=== PATIENT | male | born 1975 | race Caucasian/White ===

== ENCOUNTER → 2017-02-26 | Outpatient (CLI) | payer OTHER ==
--- NOTE | 2017-02-26 19:50 | MR ---
EXAMINATION TYPE: MR knee RT wo con DATE OF EXAM: 02/26/2017 COMPARISON: NONE HISTORY: Right knee pain TECHNIQUE: Multiplanar, multisequence imaging of the right knee is performed without IV contrast. FINDINGS: MEDIAL MENISCUS: Complex tear posterior horn medial meniscus LATERAL MENISCUS: Anterior and posterior horns are intact without tear. CRUCIATE LIGAMENTS: The anterior and posterior cruciate ligaments are intact and unremarkable. COLLATERAL LIGAMENTS: The medial collateral ligament and lateral collateral ligament complex are inta ct and unremarkable. EXTENSOR MECHANISM: Visualized quadriceps and patellar tendons are intact. EFFUSION: No significant suprapatellar joint effusion. POPLITEAL CYST: 1.5 x 1.4 x 4.1 cm area of fluid signal popliteal fossa. BONE MARROW SIGNAL: No focal abnormal marrow signal is appreciated. IMPRESSION: 1. Complex tear posterior horn medial meniscus. 2. Probable popliteal fossa cyst measuring 1.5 x 1.4 x 4.1 cm which is slightly ill-defined along its margins and may represent partial rupture of a popliteal fossa cyst.
== END | disposition home or self-care (01) ==
LOC: RADMRIMAIN 18:36
PROVIDERS: ATTEND Family Medicine
DX: S83.231A Complex tear of medial meniscus, current injury, right knee, initial encounter (principal)

== ENCOUNTER → 2018-04-21 | Outpatient (CLI) | payer BC ==
--- NOTE | 2018-04-21 15:13 | CT ---
EXAMINATION TYPE: CT brain wo/w con DATE OF EXAM: 04/21/2018 COMPARISON: NONE HISTORY: Pt c/o migraines that are getting worse. CT DLP: 2351 mGycm Automated Exposure Control for Dose Reduction was Utilized. TECHNIQUE: CT scan of the head is performed with IV contrast.,CT scan of the head is performed withou t and with with IV Contrast, patient injected with 100 mL of Isovue 300. FINDINGS: Noncontrast images show no acute intracranial hemorrhage or midline shift. The ventricles and sulci are within normal limits in size. Postcontrast images show no suspicious enhancing intrapa renchymal mass. The globes are intact and the visualized sinuses are clear. There appears to be origin of the right posterior cerebral artery, normal variant. Cerebellar tonsils are noted to be lo w-lying without herniation. IMPRESSION: No evidence of acute intracranial hemorrhage, midline shift or mass effect. No enhancing intracranial mass. Given the patient's symptoms MR could be performed for more sensitive evaluation o f white matter change that can be seen with migraines or demyelinating disease..
== END | disposition home or self-care (01) ==
LOC: RADCTMAIN 13:22
PROVIDERS: ATTEND Family Medicine
DX: G43.709 Chronic migraine without aura, not intractable, without status migrainosus (principal); H53.9 Unspecified visual disturbance
CPT/HCPCS: 70470

== ENCOUNTER → 2018-11-12 | Outpatient (CLI) | payer BC ==
--- NOTE | 2018-11-13 08:42 | EEG ---
ELECTROENCEPHALOGRAM REPORT PROCEDURE DATE: 11/12/2018. ELECTROENCEPHALOGRAM (EEG) REPORT: TECHNIQUE: A routine 18 channel EEG was performed with video using the 10/20 international placement system. HISTORY: Headaches. Last week, patient had an episode where he started to feel dizzy and lethargic, lost his vision and hearing for a few minutes and the patient fell and passed out. MEDICATIONS: Current medications: Tylenol. STUDY DURATION: 26 minutes. FINDINGS: Background: The background activity consisted of 9-10 hertz rhythmic waveforms symmetrically seen over both posterior quadrants. ACTIVATION: Hyperventilation: Not performed. Photic stimulation: Symmetric driving seen. Sleep: Stages 1 and 2 sleep noted. ABNORMALITIES: None. Please note that 1 channel of this EEG was dedicated to EKG. It demonstrated a sinus rhythm. IMPRESSION: Normal EEG. No epileptiform activity was present. No seizures were recorded. MMODL / IJN: [id number] /
== END | disposition home or self-care (01) ==
LOC: NEUROMAIN 09:52
PROVIDERS: ATTEND Family Medicine
DX: R55 Syncope and collapse (principal)
CPT/HCPCS: 95819

== ENCOUNTER → 2019-01-05 | Outpatient (CLI) | payer BC ==
--- NOTE | 2019-01-05 12:31 | XR ---
EXAMINATION TYPE: XR cervical spine comp DATE OF EXAM: 01/05/2019 COMPARISON: NONE HISTORY: Pain TECHNIQUE: Four views are submitted. FINDINGS: The odontoid is intact. There are no compression deformities. The prevertebral soft tissue structur es are within normal limits. Left apical pleural thickening. IMPRESSION: 1. No acute process.
== END | disposition home or self-care (01) ==
LOC: LABWHC1 12:01
PROVIDERS: ATTEND Family Medicine
DX: G44.221 Chronic tension-type headache, intractable (principal); M54.81 Occipital neuralgia
CPT/HCPCS: 72050

== ENCOUNTER 2021-08-21 13:12 | Emergency (ER) | payer OTHER ==
[2021-08-21 13:27] VITALS: RESP 18; TEMP 98.1
[2021-08-21] MEDS ORDERED: LIDOCAINE 1%-EPI 1:100,000 20 ML VIAL SQ STA (16:12)
--- NOTE | 2021-08-21 16:14 | ED ---
General Adult HPI - General Chief complaint: Recheck/Abnormal Lab/Rx Stated complaint: cyst Time Seen by Provider: 08/21/21 15:56 Source: patient Mode of arrival: ambulatory Limitations: no limitations - History of Present Illness Initial comments: Dictation was produced using [employer] dictation software. please excuse any grammatical, word or spelling errors. Chief Complaint: 46-year-old male with perineal abscess History of Present Illness: 46-year-old male he is here in emergency department for 6 days of perineal pain. Patient states he's had this pain since Thursday of last week. States pain is been progressively getting worse in. This morning started draining pus. Patient reports that symptoms are significantly improved after the pus began draining. He went to his primary care doctor today and was told to come to the emergency department for further evaluation. Patient states denies having any chills. Denies any nausea vomiting. No diarrhea. No fevers. He was given 1 g of prior to coming to the emergency room from his PCP. The ROS documented in this emergency department record has been reviewed and confirmed by me. Those systems with pertinent positive or negative responses have been documented in the HPI. All other systems are other negative and/or noncontributory. PHYSICAL EXAM: General Impression: Alert and oriented x3, not in acute distress HEENT: Normocephalic atraumatic, extra-ocular movements intact, pupils equal and reactive to light bilaterally, mucous membranes moist. Cardiovascular: Heart regular rate and rhythm Chest: Able to complete full sentences, no retractions, no tachypnea Abdomen: abdomen soft, non-tender, non-distended, no organomegaly Musculoskeletal: Pulses present and equal in all extremities, no peripheral edema Motor: no focal deficits noted Neurological: CN II-XII grossly intact, no focal motor or sensory deficits noted Skin: Intact with no visualized rashes : There does appear to be a fluctuant mass in the right perineal area measures 2 x 2 centimeters This mass is not encompass the testicles. Patient's testicular exam is benign. Psych: Normal affect and mood ED course: 46 yo male presents to the emergency department clinical presentation consistent with abscess of the perineum. History of present illness likely that a lot of the pus spontaneously drained earlier today. Vital signs upon arrival are within acceptable limits. Bedside ultrasound was used to confirm that there is a residual drainable fluid collection. I&D was performed at bedside. There was further removal of some pus measuring approximately 1 mL of purulent fluid. Patient tolerated procedure well. Patient given 5 day course of antibiotics. Patient counseled on home care for abscess. Patient agreeable to plan. Patient be discharged. - Related Data Previous Rx's Medication Instructions Recorded Cephalexin [Keflex] 500 mg PO Q6HR 5 Days #20 cap 08/21/21 Sulfamethox-Tmp 800-160Mg [Bactrim 1 tab PO Q12HR 5 Days #10 tab 08/21/21 DS 800-160 mg] Allergies Allergy/AdvReac Type Severity Reaction Status Date / Time No Known Allergies Allergy Verified 08/21/21 13:28 Review of Systems ROS Statement: Those systems with pertinent positive or pertinent negative responses have been documented in the HPI. ROS Other: All systems not noted in ROS Statement are negative. Past Medical History Past Medical History: No Reported History History of Any Multi-Drug Resistant Organisms: None Reported Additional Past Surgical History / Comment(s): sinus sx 2003. meniscus sx 2018 Past Psychological History: No Psychological Hx Reported Smoking Status: Current some day smoker Past Alcohol Use History: None Reported Past Drug Use History: Marijuana General Exam Limitations: no limitations Course Vital Signs 08/21/21 13:18 Temperature 98.1 F Pulse Rate 88 Respiratory 18 Rate Blood Pressure 105/71 O2 Sat by Pulse 99 Oximetry Procedures - Incision & Drainage Consent Obtained: verbal consent Site: other (perineum) Anesthetic Used: lidocaine 1%, with epi Amount (mLs): 1 I&D Cleaning Method: Alcohol Wipe Sterile Field Used?: No Scalpel Used: #11 Needle Aspiration Performed?: Yes Irrigation Performed?: No I&D Drainage Obtained: Pus Packing: Iodoform Culture Obtained?: No Patient Tolerated Procedure: well Disposition Clinical Impression: Abscess of perineum Disposition: HOME SELF-CARE Condition: Good Instructions (If sedation given, give patient instructions): Abscess (ED) Prescriptions: Sulfamethox-Tmp 800-160Mg [Bactrim DS 800-160 mg] 1 tab PO Q12HR 5 Days #10 tab Cephalexin [Keflex] 500 mg PO Q6HR 5 Days #20 cap Is patient prescribed a controlled substance at d/c from ED?: No Referrals: Irineo Franklin DO [Primary Care Provider] - 1-2 days
[2021-08-21 16:51] VITALS: BP 132/78; PULSE 80
== END 2021-08-21 16:59 | disposition home or self-care (01) ==
LOC: EC 13:12
DX: L02.215 Cutaneous abscess of perineum (principal); F17.220 Nicotine dependence, chewing tobacco, uncomplicated
CPT/HCPCS: 99283